=== PATIENT | female | born 1930 | race Caucasian/White ===

== ENCOUNTER 2017-01-20 11:53 | Day surgery (SDC) | payer MEDICARE ==
--- NOTE | 2017-01-20 13:47 | RAD ---
Indication: Right pleural effusion. Real-time sonography of the right chest was performed. There is a moderate-sized right pleural effusion. The right pleural effusion was marked and localized. IMPRESSION: The right pleural fluid was marked and localized for thoracentesis.
--- NOTE | 2017-01-20 14:27 | RAD ---
INDICATION: Status post thoracentesis evaluate for pneumothorax. COMPARISON: Comparison is made with a prior CT of the chest from January 18, 2017 and a prior chest x-ray study from January 12, 2017. TECHNIQUE: A portable view of the chest was obtained. FINDINGS: The heart is within normal limits in size. The lungs are hyperinflated. There is a masslike infiltrate present in the right upper lobe which is unchanged and enlargement of the right hilum correlating with hilar lymphadenopathy on the prior CT study. There has been interval resolution of previously noted right pleural effusion. No pneumothorax is seen. IMPRESSION: 1. INTERVAL RESOLUTION OF RIGHT PLEURAL EFFUSION, NO PNEUMOTHORAX IS SEEN. 2. MASSLIKE INFILTRATE IN THE RIGHT UPPER LOBE AND RIGHT HILAR LYMPHADENOPATHY, UNCHANGED.
[2017-01-20 14:28] LABS: Body Fluid Appearance Cloudy
[2017-01-20 14:34] LABS: Body Fluid WBC 2191 /mcL
[2017-01-20 15:31] LABS: Body Fluid Total Cells Counted 100
--- NOTE | 2017-01-21 04:23 | PRO ---
THORACENTESIS REPORT: DATE OF PROCEDURE: 01/20/17 PREPROCEDURAL DIAGNOSIS: Large Rt pleural effusion, lung mass, rule out malignancy. POSTPROCEDURE DIAGNOSIS: Large right pleural effusion PROCEDURE PERFORMED: Ultrasound-guided thoracentesis on the right side. ANESTHESIA: Local anesthesia with 2 cc of 1% lidocaine. DESCRIPTION OF PROCEDURE: Informed consent was obtained from the patient prior to the procedure after all the risks and benefits were thoroughly explained. The patient recently was evaluated with abnormal chest x-ray showing right hilar mass. The patient underwent CT scan of the chest 2 days ago, which showed right lung mass, mediastinal and hilar adenopathy, large effusion on the right side. Thoracentesis was scheduled to evaluate for malignancy. Appropriate time- out was agreed on by attending staff prior to the procedure. A CareFusion 8F thoracentesis catheter was utilized. Strict aseptic barrier precautions were followed. The patient was sitting up, leaning forwards in OR procedure room. A portable ultrasound was used at bedside to visualize large amounts of right- sided pleural effusion. Site was marked posteriorly at level of 8 th rib. Chlorhexidine prep was used to disinfect the skin. 1% lidocaine 2 cc was instilled intradermally, subcutaneously down into the pleural space taking precautions. A #11 scalpel blade was utilized to make stab incision to facilitate placement of 8-Scottish catheter. A CareFusion 8-Scottish thoracentesis catheter was then inserted under manual suction taking precautions. Catheter was left in place and needle was removed. 1 L of dark yellow slightly turbid fluid was removed under manual suction. About after 1 L was removed, there was no more fluid that was draining and procedure was terminated. The patient tolerated the procedure well. Patient remained hemodynamically stable throughout the procedure. Fluid was sent to lab for biochemical and cytological exam. Postprocedure chest x- ray was ordered and is pending at this time of dictation. [id number]/[facility] #: [id number] [facility]
[2017-01-21 13:28] LABS: Total Protein, BF 2.9 g/dL
[2017-01-24 15:35] LABS: BF PH 7.5
== END 2017-01-20 14:35 | disposition home or self-care (01) ==
LOC: OR 11:53
PROVIDERS: ATTEND Internal Medicine
DX: J90 Pleural effusion, not elsewhere classified (principal); R59.0 Localized enlarged lymph nodes; R91.8 Other nonspecific abnormal finding of lung field; Z79.02 Long term (current) use of antithrombotics/antiplatelets; I10 Essential (primary) hypertension; J44.9 Chronic obstructive pulmonary disease, unspecified; E78.5 Hyperlipidemia, unspecified; R53.82 Chronic fatigue, unspecified; G47.8 Other sleep disorders; J98.4 Other disorders of lung; Z87.891 Personal history of nicotine dependence; Z88.5 Allergy status to narcotic agent; Z86.73 Personal history of transient ischemic attack (TIA), and cerebral infarction without residual deficits
CPT/HCPCS: 32554; 36415; 71010; 76604; 83615; 83986; 84157; 87070; 87205; 88112; 89051